=== PATIENT | female | born 1970 | race Caucasian/White ===

== ENCOUNTER 2016-06-22 08:48 | Emergency (ER) | payer OTHER ==
[~2016-06-22] VITALS: Ht 154.9 cm; Wt 74.8 kg
[2016-06-22 08:58] VITALS: BP 151/95
[2016-06-22] MEDS ORDERED: FLUT30CR5 TP (09:20)
--- NOTE | 2016-06-22 09:25 | PHYS DOC ---
Past History Past Medical History: No Pertinent History Past Surgical History: No Surgical History Alcohol Use: None Drug Use: None Adult General Chief Complaint Chief Complaint: SKIN PROBLEM HPI HPI 45-year-old otherwise healthy female who noted 2 days ago a skin rash on her hands after work in the garden. Otherwise healthy who was working removing weeds from the garden when is 4 days ago when 2 days ago she noted increased small vessels on her hands and arms that are intensely itchy with erythema and redness that are linear arrangement. She denies any fever, chills, joint pains, joint swelling, recent antibiotics, recent travel, recent consumption of raw foods, or history of sexually transmitted diseases. She is attempted to wrap the wounds with gauze to prevent her from scratching at them. There is some small blisters that developed in between her fingers. Review of Systems Review of Systems Constitutional: Denies fever or chills [] Eyes: Denies change in visual acuity, redness, or eye pain [] HENT: Denies nasal congestion or sore throat [] Respiratory: Denies cough or shortness of breath [] Cardiovascular: No additional information not addressed in HPI [] GI: Denies abdominal pain, nausea, vomiting, bloody stools or diarrhea [] : Denies dysuria or hematuria [] Musculoskeletal: Denies back pain or joint pain [] Integument: Denies rash or skin lesions [] Neurologic: Denies headache, focal weakness or sensory changes [] Allergies Allergies Allergies Coded Allergies Type Severity Reaction Last Updated Verified No Known Drug Allergies 06/22/16 No Physical Exam Physical Exam Vital signs noted within normal limits. Constitutional: Well developed, well nourished, no acute distress, non-toxic appearance. [] HENT: Normocephalic, atraumatic, bilateral external ears normal, oropharynx moist, no oral exudates, nose normal. [] Eyes: PERRLA, EOMI, conjunctiva normal, no discharge. [] Neck: Normal range of motion, no tenderness, supple, no stridor. [] Cardiovascular:Heart rate regular rhythm, no murmur [] Lungs & Thorax: Bilateral breath sounds clear to auscultation [] Abdomen: Bowel sounds normal, soft, no tenderness, no masses, no pulsatile masses. [] Skin: Warm, dry, no erythema, no rash. [] Back: No tenderness, no CVA tenderness. [] Extremities: No tenderness, no cyanosis, no clubbing, ROM intact, no edema. [] Neurologic: Alert and oriented X 3, normal motor function, normal sensory function, no focal deficits noted. [] Psychologic: Affect normal, judgement normal, mood normal. [] Current Patient Data Vital Signs Vital Signs Date Time Temp Pulse Resp B/P (MAP) Pulse Ox O2 Delivery O2 Flow Rate FiO2 06/22/16 08:58 97.7 91 18 99 Room Air EKG EKG [] Radiology/Procedures Radiology/Procedures [] Course & Med Decision Making Course & Med Decision Making Pertinent Labs and Imaging studies reviewed. (See chart for details) Reviewed nurse's notes vital signs prior to discharge and agree with above. I believe patient is suffering from a contact dermatitis. Patient has no evidence of disseminated STD, doubt Rockman spotted fever, meningitis, there is no purpura associate with this particular rash area and there is no evidence of zoster. No evidence of burn or joint involvement. Patient be given supportive Benadryl [id number] as well as a topical steroid cream. Patient is to follow-up with her primary care doctor given the location of the lesions. [] Dragon Disclaimer Dragon Disclaimer This chart was dictated in whole or in part using Voice Recognition software in a busy, high-work load, and often noisy Emergency Department environment. It may contain unintended and wholly unrecognized errors or omissions. Departure Departure: Impression: Primary Impression: Contact dermatitis Disposition: 01 HOME, SELF-CARE Condition: STABLE Patient Instructions: Contact Dermatitis Additional Instructions: This return for any increasing or worsening symptoms despite treatment or if you have any questions or concerns. I would advise that use protective equipment when working in the yard to prevent secondary eruptions of the same rash. This follow-up with your physician Scripts Fluticasone Propionate (CUTIVATE) 30 Gm Cream..g. 1 ALMA TP BID, #60 GM 1 Refill Prov: SAPNA BO MD 06/22/16 SAPNA BO MD June 22, 2016 09:25
== END 2016-06-22 09:31 | disposition home or self-care (01) ==
LOC: ER 08:48
DX: L25.9 Unspecified contact dermatitis, unspecified cause (principal)
CPT/HCPCS: 99282

== ENCOUNTER 2017-12-24 06:43 | Emergency (ER) | payer OTHER ==
[~2017-12-24] VITALS: Ht 154.9 cm; Wt 79.8 kg
[~2017-12-24 06:43] MED LIST: FLUT30CR5 TP
[2017-12-24 07:10] VITALS: BP 175/98
[2017-12-24] MEDS ORDERED: ACET-704 PO (07:17)
[2017-12-24] MEDS ORDERED: CLIN300C8 PO (07:17)
--- NOTE | 2017-12-24 07:17 | PHYS DOC ---
Past History Past Medical History: No Pertinent History Past Surgical History: No Surgical History Alcohol Use: None Drug Use: None Adult General Chief Complaint Chief Complaint: DENTAL PROBLEM HPI HPI Patient is a 47-year-old female who presents with complaint of right lower dental pain for about a week. Patient states that pain has progressively been getting worse and ultimately she is come in because she noted swelling to her lower jaw over the last 24 hours. She denies any fever. She rates pain at an 8 out of 10 and states that pain is worsened with chewing and with hot and cold liquids. Review of Systems Review of Systems Constitutional: Denies fever or chills [] HENT: Positive dental pain[] Respiratory: Denies cough or shortness of breath [] Cardiovascular: No additional information not addressed in HPI [] Allergies Allergies Allergies Coded Allergies Type Severity Reaction Last Updated Verified No Known Drug Allergies 06/22/16 No Physical Exam Physical Exam Constitutional: Well developed, well nourished, no acute distress, non-toxic appearance. [] HENT: Normocephalic, atraumatic. Dentition demonstrates moderate widespread carries. There is mild swelling noted to right lower jaw. [] Eyes: PERRLA, EOMI, conjunctiva normal, no discharge. [] Neck: Normal range of motion, no tenderness, supple, no stridor. [] Cardiovascular:Heart rate regular rhythm [] Lungs & Thorax: Bilateral breath sounds clear to auscultation [] EKG EKG [] Radiology/Procedures Radiology/Procedures [] Course & Med Decision Making Course & Med Decision Making Pertinent Labs and Imaging studies reviewed. (See chart for details) [] Dragon Disclaimer Dragon Disclaimer This electronic medical record was generated, in whole or in part, using a voice recognition dictation system. Departure Departure: Impression: Primary Impression: Pain due to dental caries Condition: STABLE Referrals: PCP,NO (PCP) Patient Instructions: Dental Caries, Toothache-Brief Scripts Acetaminophen With Codeine (TYLENOL WITH CODEINE #3 TABLET) 1 Each Tablet 1 TAB PO Q6HRS PRN for PAIN, #12 TAB Prov: BRAD WALTON Jr. DO 12/24/17 Clindamycin Hcl (CLINDAMYCIN HCL) 300 Mg Capsule 1 CAP PO QID for infection, #40 CAP Prov: BRAD WALTON Jr. DO 12/24/17 BRAD WALTON Jr. DO Dec 24, 2017 07:17
== END 2017-12-24 07:26 | disposition home or self-care (01) ==
LOC: ER 06:43
DX: K02.9 Dental caries, unspecified (principal)
CPT/HCPCS: 99283